=== PATIENT | female | born 1985 | race Two or more races ===

== ENCOUNTER 2023-04-24 22:07 | Emergency (ER) | payer MEDICAID, OTHER ==
[~2023-04-24] VITALS: Ht 167.6 cm; Wt 79.0 kg
[2023-04-24] MEDS ORDERED: HYDROcodone-ACET 5/325MG TAB PO ONE (22:45)
[2023-04-24 23:55] VITALS: BP 176/75; PULSE 81; RESP 18; TEMP 97.6; O2SAT 96
[2023-04-25] MEDS ORDERED: HYDR-4902 PO (00:40)
== END 2023-04-25 01:55 | disposition home or self-care (01) ==
LOC: ER 22:07
DX: S92.001A Unspecified fracture of right calcaneus, initial encounter for closed fracture (principal); M25.461 Effusion, right knee; N18.6 End stage renal disease; V49.9XXA Car occupant (driver) (passenger) injured in unspecified traffic accident, initial encounter; Y93.89 Activity, other specified; Y92.89 Other specified places as the place of occurrence of the external cause; Y99.8 Other external cause status
CPT/HCPCS: 29515; 71045; 73502; 73610